=== PATIENT | female | born 1975 | race Caucasian/White ===

== ENCOUNTER 2023-02-20 10:53 | Emergency (ER) | payer MEDICAID ==
[~2023-02-20] VITALS: Ht 162.6 cm; Wt 92.4 kg
[2023-02-20 11:55] VITALS: BP 123/87; PULSE 82; O2SAT 97
[2023-02-20 12:23] VITALS: RESP 20
[2023-02-20] MEDS ORDERED: IBUP-1984 PO (12:37)
[2023-02-20] MEDS ORDERED: AZIT250T83 PO (12:37)
[2023-02-20] MEDS ORDERED: ROBDML PO (12:37)
[2023-02-20 12:59] VITALS: TEMP 97.9
== END 2023-02-20 13:01 | disposition home or self-care (01) ==
LOC: ER 10:54
DX: J01.00 Acute maxillary sinusitis, unspecified (principal); R05.1 Acute cough; I10 Essential (primary) hypertension; Z88.1 Allergy status to other antibiotic agents
CPT/HCPCS: 99283

== ENCOUNTER 2023-04-17 08:53 | Emergency (ER) | payer MEDICAID ==
[~2023-04-17] VITALS: Ht 162.6 cm; Wt 94.0 kg
[2023-04-17 08:58] VITALS: TEMP 98.6
[2023-04-17] MEDS ORDERED: AZIT-103 PO (12:43)
[2023-04-17] MEDS ORDERED: PRED20TA PO (12:43)
[2023-04-17] MEDS ORDERED: BENZ-38 PO (12:43)
[2023-04-17] MEDS ORDERED: azithromycin 250mg tablet PO ONE (12:45)
[2023-04-17] MEDS ORDERED: benzonatate 100mg capsule PO ONE (12:45)
[2023-04-17 13:10] VITALS: BP 129/96; PULSE 84; RESP 17; O2SAT 95
== END 2023-04-17 13:15 | disposition home or self-care (01) ==
LOC: ER 08:53
DX: J20.9 Acute bronchitis, unspecified (principal); I10 Essential (primary) hypertension
CPT/HCPCS: 99283

== ENCOUNTER 2023-08-02 08:57 | Outpatient (CLI) | payer MEDICAID | END 2023-08-02 23:59 | disposition home or self-care (01) | LOC: RAD 08:57 | PROVIDERS: ATTEND General Practice | DX: M54.50 Low back pain, unspecified (principal) | CPT/HCPCS: 72110 ==